=== PATIENT | female | born 1985 | race Caucasian/White ===

== ENCOUNTER 2018-07-09 16:50 | Inpatient (IN) | payer OTHER ==
[2018-07-09] MEDS ORDERED: TUBERCULIN PPD 5 TU/0.1ML SYRINGE (IN PATIENT USE ONLY) ID ONE ×2 (17:27→17:30)
[2018-07-09] MEDS ORDERED: AMPICILLIN - 2 GM in SODIUM CHLORIDE 100 ML IVPB ONE (17:30)
[2018-07-09 17:54] LABS: BASO % 0.6 % (0-2.0); EOS % 0.1 % (0-4.5); HEMATOCRIT 35.6 % (32.4-45.2); LYMPH % 14.7 % (8-40); MCH 29.5 pg (25.7-33.7); MCHC 33.6 g/dl (32.0-36.0); MEAN CELL VOLUME 87.8 fl (80-96); MEAN PLT VOLUME 10.4 fl (7.5-11.1); MONO % 8.3 % (3.8-10.2); NEUT % 76.3 % (42.8-82.8); PLATELET COUNT 139 K/MM3 (134-434); RBC 4.05 M/mm3 (3.60-5.2); RDW 14.9 % (11.6-15.6); WHITE BLOOD COUNT 9.1 K/mm3 (4.0-10.0)
[2018-07-09 18:01] LABS: INR 0.93 (0.83-1.09)
[2018-07-09 18:04] LABS: ACTIVATED PTT 30.1 SECONDS (25.2-36.5)
[2018-07-09 18:12] LABS: ANION GAP 9 MMOL/L (8-16); BLOOD UREA NITROGEN 11 mg/dL (7-18); CALCIUM 8.4 mg/dL (8.5-10.1); CHLORIDE 104 mmol/L (98-107); CO2 22 mmol/L (21-32); CREATININE 0.5 mg/dL (0.55-1.3); GLUCOSE,RANDOM 91 mg/dL (74-106); POTASSIUM 3.9 mmol/L (3.5-5.1); SODIUM 134 mmol/L (136-145)
[2018-07-09] MEDS ORDERED: ELECTROLYTE-148 SOLN 1,000 ML IV SCH ×2 (18:15→19:45)
[2018-07-09 18:34] VITALS: BMI 33.6
[2018-07-09] MEDS ORDERED: FENTANYL/BUPIVACAINE/NS/PF - PCEA - 50 ML DISP.SYRIN EP ONE ×2 (18:34→23:34)
[2018-07-09] MEDS ORDERED: BUPIVACAINE HCL/PF 0.25% (2.5MG/ML) 10 ML VIAL ONE (18:57)
[2018-07-09] MEDS ORDERED: LIDO 2%/EPI 1:200000 PRESRVFRE (20 ML SDVIAL) ONE (19:14)
[2018-07-09] MEDS ORDERED: NALOXONE HCL 0.4 MG/ML VIAL IVPUSH PRN (19:28)
--- NOTE | 2018-07-09 19:44 | HP ---
Past Medical History - Primary Care Physician PCP:: Adeel Somers - Admission Chief Complaint: 33yo P1 with at EGA 39w3d admitted with spontaneous labor. History of Present Illness: Spont contractions since 1am Vaginal GBS positive. History Source: Patient, Medical Record Limitations to Obtaining History: No Limitations - Past Medical History PODIATRIST ORTHOPEDIC: No: Alzheimer's, CVA, Dementia, Migraine, Multiple Sclerosis, Peripheral Neuropathy, Parkinson's, Seizure, Syncope, TIA, Vertigo, Other Cardiovascular: No: AFIB, Aneurysm, Aortic Insufficiency, Aortic Stenosis, CAD, CHF, Deep Vein Thrombosis, HTN, Hyperlipdemia, IA, Mitral Insufficiency, Mitral Stenosis, Murmur, Pulmonary Hypertension, Other Pulmonary: No: Asthma, Bronchitis, Cancer, COPD, O2 Dependent, Pneumonia, Previously Intubated, Pulmonary Embolus, Pulmonary Fibrosis, Sleep Apnea, Other Gastrointestinal: No: Ascites, Cancer, Constipation, Crohn's Disease, Diverticulitis, Diverticulosis, Esophageal Varices, Gastritis, GERD, GI Bleed, Hemorrhoids, Hiatal Hernia, Inflamatory Bowel Disease, Irritable Bowel Disease, Pancreatitis, Peptic Ulcer Disease, Ulcerative Colitis, Other Hepatobiliary: No: Cirrhosis, Cholelithiasis, Cholecystitis, Choledocholithiasis , Hepatitis A, Hepatitis B, Hepatitis C, Other Renal/: No: Renal Failure, Renal Inusuff, BPH, Cancer, Hematuria, Hemodialysis , Neurogenic Bladder, Renal Calculi, UTI, Other Reproductive: No: Ectopic , Endometriosis, Fibroids, PID, Polycystic Ovary Syndrome, Postmenopausal, Other ...: 2 ...Para: 1 ...Term: 1 ...: 0 ...Spon : 0 ...Induced : 0 ...Multiple Gestation: 0 ...LMP: 10/06/17 ... Weeks Gestation by Dates: 39.3 ...EDC by Dates: 07/13/18 ...EDC by Sono: 07/13/18 Heme/Onc: Yes: Anemia Infectious Disease: No: AIDS, C-Diff, Herpes Zoster, HIV, MRSA, STD's, Tuberculosis, VREF, Other Psych: No: Addictions, Anxiety, Bipolar, Depression, Panic, Psychosis, Schizophrenia, Other Musculoskeletal: No: Bursitis, Chronic low back pain, Hemiparesis, Hemiplegia, Osteoarthritis, Paraplegia, Other Rheumatology: No: Fibromyalgia, Gout, Lupus, Rheumatoid Arthritis, Sarcoidosis, Vasculitis, Other ENT: No: Allergic Rhinitis, Sinusitis, Other Endocrine: No: Sheldon's Disease, Freeman's Disease, Diabetes Insipidus, Diabetes Mellitus, Hyperparathyroidism, Hyperthyroidism, Hypothyroidism, Osteopenia, SIADH, Other Dermatology: No: Basal Cell, Cellulitis, Eczema, Melanoma, Psoriasis, Squamous Cell, Other - Past Surgical History Past Surgical History: Yes: None Hx Myomectomy: No Hx Transabdominal Cerclage: No - Smoking History Smoking history: Never smoked Have you smoked in the past 12 months: No - Alcohol/Substance Use Hx Alcohol Use: No History of Substance Use: reports: None - Social History Usual Living Arrangement: Yes: With Spouse, With Child ADL: Independent History of Recent Travel: No Home Medications - Allergies Allergies/Adverse Reactions: Allergies Allergy/AdvReac Type Severity Reaction Status Date / Time No Known Allergies Allergy Verified 07/09/18 17:27 - Home Medications Home Medications: Ambulatory Orders Tablet 1 tab PO DAILY 11/23/15 Family Disease History - Family Disease History Family Disease History: Diabetes: Brother, Other: Father (HTN) Review of Systems - Review of Systems Constitutional: reports: Other (labor contractions) Eyes: reports: No Symptoms HENT: reports: No Symptoms Neck: reports: No Symptoms Cardiovascular: reports: No Symptoms Respiratory: reports: No Symptoms Gastrointestinal: reports: No Symptoms Genitourinary: reports: No Symptoms Breasts: reports: No Symptoms Reported Musculoskeletal: reports: No Symptoms Integumentary: reports: No Symptoms Neurological: reports: No Symptoms Endocrine: reports: No Symptoms Hematology/Lymphatic: reports: No Symptoms Psychiatric: reports: No Symptoms Pain Intensity: 9 Physical Exam - Maternity Vital Signs: Vital Signs Temperature 98.2 F 07/09/18 18:28 Pulse Rate 79 07/09/18 18:28 Respiratory Rate 20 07/09/18 18:28 Blood Pressure 118/72 07/09/18 18:28 O2 Sat by Pulse Oximetry (%) Constitutional: Yes: Well Nourished, No Distress, Calm Eyes: Yes: WNL, Conjunctiva Clear HENT: Yes: WNL, Atraumatic, Normocephalic Neck: Yes: WNL, Supple, Trachea Midline Cardiovascular: Yes: WNL, Regular Rate and Rhythm Lungs: Clear to auscultation, Normal air movement - Abdominal Exam/OB Fundal Height: 39 Number of Fetuses: Single Presentation: Vertex Contractions: Yes Regularity: Regular Intensity: Moderate Monitor Mode: External Heart Rate (range): 140 Heart Rate Location: Midline Category: I Accelerations: Uniform Decelerations: None - Vaginal Exam/OB Vaginal Bleediing: No Speculum Exam: No Dilatation (cm): 6 Effacement (%): 80 Amniotic Membrane Status: Ruptured (AROM clear at 19:30) Amniotic Fluid: Yes: Clear Presentation: Vertex/Position Station: -2 (Gynecoid pelvimetry) - Physical Exam Musculoskeletal: Yes: WNL Extremities: Yes: WNL Edema: Yes Edema: LLE: Trace, RLE: Trace Integumentary: Yes: WNL Deep Tendon Reflex Grade: Normal +2 ...Motor Strength: WNL Psychiatric: Yes: WNL, Alert, Oriented - Labs Lab Results: CBC, BMP 07/09/18 17:25 07/09/18 17:25 Hemorrhage Risk Assessment - Risk Factors Medium Risk Factors: Yes: None High Risk Factors: Yes: None Risk Score: 1 Risk Level: Medium Risk Imaging - Results Ultrasound: Report Reviewed Assessment/Plan 33yo P1 with at EGA 39w3d admitted with spontaneous labor. Fetus with Category I tracing. The pt with protracted labor. AROM done. Plan to monitor progress. Abx for GBS prophylaxis Anticipate Epidural administered per pt request.
[2018-07-09] MEDS ORDERED: FENTANYL/BUPIVACAINE/NS/PF - PCEA - 50 ML DISP.SYRIN EP SCH (19:45)
[2018-07-09] MEDS ORDERED: AMPICILLIN SODIUM 1 GM VIAL ONE (20:46)
[2018-07-09] MEDS ORDERED: AMPICILLIN - 1 GM in SODIUM CHLORIDE 100 ML IVPB SCH (21:30)
--- NOTE | 2018-07-09 21:52 | PN ---
Ante-Partal Exam - Subjective Subjective: Pt without complaints. Contractions had spaced out. Vital Signs: Vital Signs Temperature 98.2 F 07/09/18 21:00 Pulse Rate 86 07/09/18 21:30 Respiratory Rate 18 07/09/18 21:30 Blood Pressure 105/78 07/09/18 21:30 O2 Sat by Pulse Oximetry (%) 100 07/09/18 21:30 Bleeding: No Headache: No Visual changes: No Right upper quadrant pain: No Pain (scale 1-10): 0 - Contractions Contractions: Yes Regularity: Irregular Intensity: Mild/Mod Monitor Mode: External - Exam during Labor Heart Rate: 140 Variability: Moderate Heart Rate Location: Midline Category: I Monitor Accelerations: Present Monitor Decelerations: None Exam: Vaginal Dilatation (cm): 7 Effacement (%): 80 Amniotic Membrane Status: Leaking Presentation: Vertex Station: -2 - Intrapartum Hemorrhage Risk Medium Risk Factors: None High Risk Factors: None Risk Score: 0 Risk Level: Low Risk - Assessment/Plan Assessment/Plan: Protracted labor with inadequate contractions. Fetus with category I tracing. Plan to augment contractions with pitocin. Monitor labor progress.
[2018-07-09] MEDS ORDERED: OXYTOCIN 30 UNITS in 0.9% NS 30 UNIT/500 ML INFUS.BAG IVPB SCH (22:00)
[2018-07-09] MEDS ORDERED: OXYTOCIN 20 UNITS in 0.9% NS 20 UNIT/1,000 ML INFUS.BAG IV ONE (23:34)
[2018-07-10] MEDS ORDERED: LIDOCAINE HCL 1% PRESERVATIVE FREE - 30ML VIAL ONE (00:04)
[2018-07-10] MEDS ORDERED: BISACODYL 10 MG SUPP.RECT RC PRN (00:25)
[2018-07-10] MEDS ORDERED: BENZOCAINE 20% 57 GM BOTTLE TP PRN (00:25)
[2018-07-10] MEDS ORDERED: BENZOCAINE 28 GM HEMORRHOIDAL OINTMENT TP PRN (00:25)
[2018-07-10] MEDS ORDERED: WITCH HAZEL 50% (TUCKS) 40 PAD/JAR PAD TP PRN (00:25)
[2018-07-10] MEDS ORDERED: METHYLERGONOVINE MALEATE 0.2 MG/1 ML AMP IM PRN (00:25)
[2018-07-10] MEDS ORDERED: OXYTOCIN 20 UNITS in 0.9% NS 20 UNIT/1,000 ML INFUS.BAG IV SCH (00:30)
[2018-07-10] MEDS ORDERED: OXYTOCIN 20 UNITS in 0.9% NS 20 UNIT/1,000 ML INFUS.BAG IV ONE (01:35)
[2018-07-10] MEDS: ACETAMINOPHEN 325 MG TABLET (FP) PO PRN ×2 (08:27→21:18)
[2018-07-10] MEDS: IBUPROFEN 600 MG TABLET (FP) PO PRN ×2 (08:27→21:18)
[2018-07-10] MEDS: PRENATAL VITAMINS W/ FOLIC ACID TABLET (FP) PO SCH (09:37)
--- NOTE | 2018-07-10 16:14 | PN ---
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
--- NOTE | 2018-07-11 07:22 | PN ---
Post Progress Note - Subjective Subjective: Patient without acute complaints. Reports tolerating oral intake without nausea or vomiting. Ambulating without dizziness. Denies fevers or chills. Pain well controlled with oral pain medication. without difficulty. Passing flatus. Post Day: 1 Type of Delivery: Vital Signs: Vital Signs Temperature 98.3 F 07/10/18 22:00 Pulse Rate 101 H 07/10/18 22:00 Respiratory Rate 18 07/10/18 22:00 Blood Pressure 110/74 07/10/18 22:00 O2 Sat by Pulse Oximetry (%) 100 07/10/18 01:15 Breast Exam: Yes: Soft Uterus: Yes: Fundus Firm Abdomen/GI: Yes: Abdomen soft, Passing flatus, Tolerating PO. No: Abdominal Distention, Tender Lochia: Yes: Serosa Lochia, amount: Small Extremities: Yes: Calves non-tender, Edema (trace) Activity: Ambulating - Labs Labs: CBC WBC 9.1 K/mm3 (4.0-10.0) 07/09/18 17:25 RBC 4.05 M/mm3 (3.60-5.2) 07/09/18 17:25 Hgb 12.0 GM/dL (10.7-15.3) 07/09/18 17:25 Hct 35.6 % (32.4-45.2) D 07/09/18 17:25 MCV 87.8 fl (80-96) 07/09/18 17:25 MCH 29.5 pg (25.7-33.7) 07/09/18 17:25 MCHC 33.6 g/dl (32.0-36.0) 07/09/18 17:25 RDW 14.9 % (11.6-15.6) 07/09/18 17:25 Plt Count 139 K/MM3 (134-434) 07/09/18 17:25 MPV 10.4 fl (7.5-11.1) 07/09/18 17:25 Absolute Neuts (auto) 7.0 K/mm3 (1.5-8.0) 07/09/18 17:25 Neutrophils % 76.3 % (42.8-82.8) 07/09/18 17:25 Lymphocytes % 14.7 % (8-40) 07/09/18 17:25 Monocytes % 8.3 % (3.8-10.2) 07/09/18 17:25 Eosinophils % 0.1 % (0-4.5) 07/09/18 17:25 Basophils % 0.6 % (0-2.0) 07/09/18 17:25 Nucleated RBC % 0 % (0-0) 07/09/18 17:25 Assessment/Plan 33 yo PPD # 1 s/p , afebrile, vital signs stable, doing well 1. Continue routine care. 2. Follow up AM CBC 3. If continued stable VS and CBC, may consider DC home today 4. Patient encouraged to contact MD for: - Severe pain not controlled by oral pain medication - Fevers or chills - Nausea or vomiting, intolerance of oral intake 5. Patient to follow up in office in 4-6 weeks for visit
--- NOTE | 2018-07-11 07:45 | DS ---
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: Vital Signs Temperature 98.3 F 07/10/18 22:00 Pulse Rate 101 H 07/10/18 22:00 Respiratory Rate 18 07/10/18 22:00 Blood Pressure 110/74 07/10/18 22:00 O2 Sat by Pulse Oximetry (%) 100 07/10/18 01:15 Labs: CBC, BMP 07/09/18 17:25 07/09/18 17:25 Delivery - Delivery Vaginal Delivery: No Problems, Shoulder/Difficult Type of Anesthesia: Epidural Episiotomy/Laceration: Perineal Extension/lac, 1st degree EBL (cc): 300 Delivery, Single - Stages of Labor Date 1st Stage Initiatied: 07/09/18 Time 1st Stage Initiated: 04:00 Date 2nd Stage Initiated: 07/09/18 Time 2nd Stage Initiated: 23:57 Date of Delivery: 07/10/18 Time of Delivery: 00:12 Time Placenta Delivered: 00:14 Placenta: Yes: Spontaneous, Normal Configuration - Condition of 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 Gender: Male Weight: 7 lb 10 oz Position: Right, OA Total Hours ROM (Hrs/Mins): 4 hours 44 minutes - 1 Minute Total Score: 9 5 Minutes Total Score: 9 - [place] Feeding Plan Initial Plan: Exclusive throughout hospitalization Benefits of Exclusively reinforced: Yes Discharge Summary Reason For Visit: ADMIT LABOR Current Active Problems Vaginal delivery (Acute) Procedures: Principal: Vaginal delivery Hospital Course: Patient admitted and delivered via She fulfilled all criteria for DC home PPD #1 Condition: Good - Instructions Diet, Activity, Other Instructions: Physical activity Resume your normal everyday activity as tolerated no heavy lifting or exercise until seen by your surgeon. You may walk unlimited [place]son of and climb stairs. You may resume driving the car when you feel safe and comfortable behind the wheel. No sexual activity as instructed. Wound care If you have a bandage, leave it on, and keep dry for 48-72 hours. After that time discard the outer bandage. If they are tapes on the skin under the out of bandage leave them in place. They will peel off in the next 7 to 10 days. Do Not Peel them off. You may shower the day after surgery. If there are tapes present on the skin, you may shower over them. Diet There are no dietary restrictions. Eat healthy, high-fiber foods. Drink 6 to 8 glasses of liquid each day. This will assist in keeping your bowels are regular. Pain management You may take Tylenol or acetaminophen or Ibuprofen (for example, Motrin, Advil etc.) from my pain prescription medication is ordered should be taken as prescribed for moderate to severe pain. Call MD for any of the following: Severe pain not relieved by medication Fever of 101 or higher Excessive bleeding or drainage on dressing Inability to urinate Referrals: Adeel Somers MD [Staff Physician] - Disposition: HOME - Home Medications Comprehensive Discharge Medication List: Ambulatory Orders Tablet 1 tab PO DAILY 11/23/15
[2018-07-11 08:33] LABS: BASO % 0.2 % (0-2.0); EOS % 0.6 % (0-4.5); HEMOGLOBIN 10.7 GM/dL (10.7-15.3); LYMPH % 29.8 % (8-40); MCH 29.4 pg (25.7-33.7); MCHC 33.5 g/dl (32.0-36.0); MEAN PLT VOLUME 9.9 fl (7.5-11.1); MONO % 7.9 % (3.8-10.2); NEUT % 61.5 % (42.8-82.8); PLATELET COUNT 137 K/MM3 (134-434); RBC 3.64 M/mm3 (3.60-5.2); RDW 15.3 % (11.6-15.6); WHITE BLOOD COUNT 7.7 K/mm3 (4.0-10.0)
[2018-07-11 08:49] VITALS: BP 93/67; PULSE 86; TEMP 98
[2018-07-11] MEDS: PRENATAL VITAMINS W/ FOLIC ACID TABLET (FP) PO SCH (09:42)
[2018-07-11] MEDS ORDERED: SENNOSIDES/DOCUSATE COMBO (SENNA PLUS) TABLET (UD) PO PRN (22:00)
== END 2018-07-11 16:00 | disposition home or self-care (01) | DRG 807 ==
LOC: JLDR 16:50 → J3W 07-10 02:07
PROVIDERS: ADMIT Obstetrics & Gynecology; ATTEND Obstetrics & Gynecology
PROC: 0HQ9XZZ Repair Perineum Skin, External Approach (ICD-10-PCS; principal; 2018-07-10)
PROC: 10E0XZZ Delivery of Products of Conception, External Approach (ICD-10-PCS; 2018-07-10)
DX: O70.0 First degree perineal laceration during delivery (principal); Z37.0 Single live birth; Z3A.39 39 weeks gestation of pregnancy
CPT/HCPCS: 36415; 59409; 80048; 85025; 85461; 85610; 85730; 86593; 86850; 86900; 86901; 86999

== ENCOUNTER 2021-04-11 05:08 | Day surgery (SDC) | payer OTHER ==
[2021-04-06 17:33] VITALS: BMI 26.5
[2021-04-11] MEDS ORDERED: PROPOFOL 20 ML ONE (11:14)
[2021-04-11] MEDS ORDERED: MIDAZOLAM HCL 2 MG/2 ML SINGLE DOSE VIAL ONE (11:14)
[2021-04-11] MEDS ORDERED: LIDOCAINE HCL/PF 2% SDV 5ML VIAL ONE (11:14)
[2021-04-11] MEDS ORDERED: ROCURONIUM BROMIDE 50 MG/5 ML SYRINGE ONE (11:14)
[2021-04-11] MEDS ORDERED: BUPIVACAINE HCL/PF 0.5% (5MG/ML) 10 ML VIAL ONE (11:18)
[2021-04-11] MEDS ORDERED: ceFAZolin SODIUM 1 GM VIAL IVPB ONE (12:15)
[2021-04-11] MEDS ORDERED: ONDANSETRON 4 MG/2 ML VIAL IVPUSH PRN (12:37)
[2021-04-11] MEDS ORDERED: oxyCODONE HCL 5 MG TABLET PO PRN ×2 (12:37)
[2021-04-11] MEDS ORDERED: LACTATED RINGERS SOLUTION 1,000 ML IV SCH (12:45)
[2021-04-11] MEDS ORDERED: BUPIVACAINE HCL/PF 0.5% (5 MG/ML) 30 ML VIAL IJ ONE (12:55)
[2021-04-11 16:16] VITALS: BP 109/75; PULSE 73; TEMP 97.7
== END 2021-04-11 16:05 | disposition home or self-care (01) ==
LOC: JASU-SURG 05:08
PROVIDERS: ATTEND Obstetrics & Gynecology
PROC: 0UT74ZZ Resection of Bilateral Fallopian Tubes, Percutaneous Endoscopic Approach (ICD-10-PCS; principal; 2021-04-11 11:00)
DX: Z30.2 Encounter for sterilization (principal)
CPT/HCPCS: 81025; 88302-TC; 94760

== ENCOUNTER 2024-09-22 07:00 | Day surgery (SDC) | payer BC ==
[2024-09-15 12:13] VITALS: BMI 24.7
[2024-09-22] MEDS ORDERED: MIDAZOLAM HCL 2 MG/2 ML SINGLE DOSE VIAL ONE (13:05)
[2024-09-22] MEDS ORDERED: PROPOFOL 20 ML ONE (13:05)
[2024-09-22] MEDS: LACTATED RINGERS SOLUTION 1,000 ML IV SCH (14:00)
[2024-09-22] MEDS: ACETAMINOPHEN 1000 MG/100 ML BAG IVPB ONE (14:30)
[2024-09-22] MEDS: ACETAMINOPHEN INJECTION 100 ML ONE (14:30)
[2024-09-22 15:05] VITALS: RESP 18
[2024-09-22 17:21] VITALS: BP 98/65; PULSE 67; TEMP 97.9
== END 2024-09-22 16:50 | disposition home or self-care (01) ==
LOC: JASU-SURG 07:00
PROVIDERS: ATTEND Obstetrics & Gynecology
PROC: 0UDB8ZX Extraction of Endometrium, Via Natural or Artificial Opening Endoscopic, Diagnostic (ICD-10-PCS; principal; 2024-09-22 14:00)
DX: N92.0 Excessive and frequent menstruation with regular cycle (principal)
CPT/HCPCS: 81025; 88305-TC; 94760